=== PATIENT | female | born 1970 | race Caucasian/White ===

== ENCOUNTER 2018-02-16 04:58 | Emergency (ER) | payer SELFPAY ==
[2018-02-16] MEDS ORDERED: XYLOCAINE 1 % (PLAIN) ONE (05:02)
[2018-02-16 05:08] VITALS: BP 158/97; BMI 29.2
--- NOTE | 2018-02-16 05:38 | DR.LACERAT ---
HPI - Time Seen Time seen: 05:15 - Primary Care Physician Primary Care Physician: [place] - HPI Comment HPI Comment: CUT LEFT HAND WITH [employer] ADVIS[employer] AT HOME BEFORE COMING TO ED. TD 4YRS AGO. - Complaints Chief Complaint Doctors Comments: LACERATION LRFT HAND. Chief Complaint:: LACERATION TO LEFT INNER PALM, NEAR 1ST DIGIT. ACTIVE BLEEDING. 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 - Reviewed Nurses Notes Reviewed: Yes - Source History Provided: Patient - Mode of Arrival Mode of Arrival: Ambulatory - Timing Onset of Chief Complaint: 02/16/18 - Context Mechanism: Knife ([employer] ADVIS[employer].) Tetanus Vaccination: Yes (4YRS AGO.) - Severity Pain Severity: Moderate Bleeding:: Uncontrolled - Associated Signs and Symptoms Associated Signs and Symptoms: None PMH - PMH Past Medical History: No Past Medical History: Renal Disease Past Surgical History: Yes Surgical History: Appendectomy, , Cholecystectomy Past Surgical History Comment: HERNIA REPAIR - Family History History of Family Medical Conditions: No - Social History Type of Tobacco Use: Cigarettes Alcohol Use: None Do you use any recreational Drugs:: No Lives Where: Home - infectious screening Have you traveled outside the country in the last 6 months?: No Isolation: Standard ROS - Review of Systems Constitutional: No Symptoms Reported Eyes: No Symptoms Reported ENTM: No Symptoms Reported Respiratoy: No Symptoms Reported Cardiovascular: No Symptoms Reported Gastrointestinal/Abdominal: No Symptoms Reported Genitourinary: No Symptoms Reported Neurological: No Symptoms Reported Musculoskeletal: Left, Hand Integumentary: Wound (3CM LAC OVER THENAR EMINENCE LT HAND.) Hematologic/Lymphatic: No Symptoms Reported Endocrine: No Symptoms Reported All Other Systems: Reviewed and Negative PE - Vital Signs Vitals: Temperature 98.0 F Pulse Rate 96 Respiratory Rate 18 Blood Pressure [Left Arm] 126/83 Blood Pressure 158/97 O2 Sat by Pulse Oximetry 99 - General Limitations: No Limitations General Appearance: Alert - Head Head Exam: Normal Inspection - Eyes Eye exam: Normal Appearance - ENT ENT Exam: Normal External Ear Exam - Chest Chest Inspection: Symmetric Chest Wall Rise - Respiratory Respiratory Exam: Normal Lung Sounds Bilat Respiratory Exam: Bilateral Clear to Auscultation - Cardiovascular Cardiovascular Exam: Regular Rate, Normal Rhythm, Normal Heart Sounds - Abdominal Exam Abdominal Exam: Normal Inspection - Extremities Extremities Exam: Tenderness (3CM LAC OVER THENAR EMINENCE LT HAND. BLEEDING.) - Neurologic Neurological Exam: Alert, Oriented X3 - Psychiatric Psychiatric Exam: Anxious - Skin Skin Exam: Erythema MDM - Differential Diagnosis Differential Diagnosis: Contusion, Laceration Course - Treatment Treatment: SEE ORDERS. LAC CLOSE. - Education/Counseling Education/Counseling: Patient, Education Educated On: Diagnosis, Needs for Follow Up Procedures - Laceration/Wound Repair Left Hand Wound Length (cm): 3 Wound's Depth, Shape: Linear Wound Explored: clean Betadine Prep?: Yes Anesthesia: 1% Lidocaine Volume Anesthetic (ccs): 3 Wound Debrided: moderate Wound Repaired With: sutures Suture Size/Type: 4:0, [place] Number of Sutures: 7 Layer Closure?: No Sterile Dressing Applied?: Yes Splint Applied?: No Sling Applied?: No - Diagnosis Discharge Problem: Hand laceration Qualifiers: Encounter type: initial encounter Foreign body presence: without foreign body Laterality: left Qualified Code(s): S61.412A - Laceration without foreign body of left hand, initial encounter - Discharge Plan Condition: Stable Prescriptions: Acetaminophen with Codeine [Tylenol/Codeine #3 300-30 mg] 1 tab PO Q6H PRN #12 tab PRN Reason: Pain Cephalexin [KEFLEX CAP 500 MG *] 500 mg PO TID #21 cap Ibuprofen [MOTRIN TAB 600 MG *] 600 mg PO TID PRN #30 tab PRN Reason: Pain/Inflammation - Follow ups/Referrals Follow ups/Referrals: NFD,None [Primary Care Provider] - 3 days - Instructions Instructions: Laceration Care, Adult, [id number] Additional Instructions: RETURN TO ED IF WORSE. SUTURE OUT IN 10 DAYS.
== END 2018-02-16 05:45 | disposition home or self-care (01) ==
LOC: ER 04:58
PROC: 0XQKXZZ Repair Left Hand, External Approach (ICD-10-PCS; principal; 2018-02-16)
DX: S61.412A Laceration without foreign body of left hand, initial encounter (principal); W45.8XXA Other foreign body or object entering through skin, initial encounter; Y92.9 Unspecified place or not applicable
CPT/HCPCS: 12002; 99282; J2001